=== PATIENT | male | born 1990 | race Two or more races ===

== ENCOUNTER 2017-02-06 23:24 | Emergency (ER) | payer OTHER ==
[~2017-02-06] VITALS: Ht 177.8 cm; Wt 88.5 kg
[2017-02-06] MEDS ORDERED: ONDANSETRON HCL 4 MG/2 ML VIAL IV ONE (23:30)
[2017-02-06] MEDS ORDERED: HYDROmorphone HCL 2 MG/ML VL IV ONE (23:30)
[2017-02-06] MEDS ORDERED: ETOMIDATE (2MG/ML) 20ML VIAL IV ONE (23:45)
[2017-02-07 00:45] VITALS: BP 133/80
== END 2017-02-07 01:50 | disposition home or self-care (01) ==
LOC: ER 23:27
DX: S93.04XA Dislocation of right ankle joint, initial encounter (principal); S82.841A Displaced bimalleolar fracture of right lower leg, initial encounter for closed fracture; X58.XXXA Exposure to other specified factors, initial encounter; Y93.39 Activity, other involving climbing, rappelling and jumping off; Y99.8 Other external cause status; Y92.89 Other specified places as the place of occurrence of the external cause
CPT/HCPCS: 73600; 82962; 96374; 96375